=== PATIENT | female | born 1985 | race African-American/Black ===

== ENCOUNTER 2017-10-03 11:14 | Emergency (ER) | payer OTHER ==
[2017-10-03] MEDS ORDERED: METOCLOPRAMIDE HCL 10 MG TABLET PO ONE (12:01)
--- NOTE | 2017-10-03 12:07 | ER Document Report ---
ED General - General Chief Complaint: Vaginal Bleeding Stated Complaint: NAUSEA Time Seen by Provider: 10/03/17 11:47 Mode of Arrival: Ambulatory Information source: Patient Notes: 32-year-old female history of adenomyosis presents with complaints of vaginal bleeding. Patient denies any fevers or chills pain patient notes that she has been bleeding for the past 3 months intermittently, she states [place], she states that they are willing to perform it that she plans on following up with them. She does also note a mild headache, she did drive herself here, she admits to nausea pt does not want control, has had a tubal ligation TRAVEL OUTSIDE OF THE [place] IN LAST 30 DAYS: No - HPI Onset: Other - 3 month duration Onset/Duration: Sudden Quality of pain: No pain Severity: Mild Pain Level: Denies Associated symptoms: Headache, Nausea Exacerbated by: Denies Relieved by: Denies Similar symptoms previously: Yes Recently seen / treated by doctor: Yes - Related Data Allergies/Adverse Reactions: No Known Allergies Allergy (Verified 10/03/17 11:16) Past Medical History - Social History Smoking Status: Never Smoker Cigarette use (# per day): No Chew tobacco use (# tins/day): No Smoking Education Provided: No Frequency of alcohol use: None Drug Abuse: None Family History: Reviewed & Not Pertinent Patient has suicidal ideation: No Patient has homicidal ideation: No Renal/ Medical History: Denies: Hx Peritoneal Dialysis Past Surgical History: Reports: Hx Section, Hx Kidney (Renal Surgery) - donated left kidney, Hx Urinary Tract Surgery - Elective nephrectomy - Immunizations Hx Diphtheria, Pertussis, Tetanus Vaccination: Yes Review of Systems - Review of Systems Notes: REVIEW OF SYSTEMS: CONSTITUTIONAL : Denies fever, chills, or sweats. Denies recent illness. EENT: Denies eye, ear, throat, or mouth pain or symptoms. Denies nasal or sinus congestion or discharge. Denies throat, tongue, or mouth swelling or difficulty swallowing. CARDIOVASCULAR: Denies chest pain. Denies palpitations or racing or irregular heart beat. Denies ankle edema. RESPIRATORY: Denies cough, cold, or chest congestion. Denies shortness of breath, difficulty breathing, or wheezing. GASTROINTESTINAL: Denies abdominal pain or distention. Denies nausea, vomiting , or diarrhea. Denies blood in vomitus, stools, or per rectum. Denies black, tarry stools. Denies constipation. GENITOURINARY: Denies difficulty urinating, painful urination, burning, frequency, blood in urine, or discharge. FEMALE GENITOURINARY: admits to vaginal bleeding MUSCULOSKELETAL: Denies back or neck pain or stiffness. Denies joint pain or swelling. SKIN: Denies rash, lesions or sores. HEMATOLOGIC : Denies easy bruising or bleeding. LYMPHATIC: Denies swollen, enlarged glands. NEUROLOGICAL: Denies confusion or altered mental status. Denies passing out or loss of consciousness. Denies dizziness or lightheadedness. Denies headache. Denies weakness or paralysis or loss of use of either side. Denies problems with gait or speech. Denies sensory loss, numbness, or tingling. Denies seizures. PSYCHIATRIC: Denies anxiety or stress. Denies depression, suicidal ideation, or homicidal ideation. ALL OTHER SYSTEMS REVIEWED AND NEGATIVE. PHYSICAL EXAMINATION: GENERAL: Well-appearing, well-nourished and in no acute distress. HEAD: Atraumatic, normocephalic. EYES: Pupils equal round and reactive to light, extraocular movements intact, conjunctiva are normal. ENT: Nares patent, oropharynx clear without exudates. Moist mucous membranes. NECK: Normal range of motion, supple without lymphadenopathy LUNGS: Breath sounds clear to auscultation bilaterally and equal. No wheezes rales or rhonchi. HEART: Regular rate and rhythm without murmurs ABDOMEN: Soft, nontender, nondistended abdomen. No guarding, no rebound. No masses appreciated. Female : deferred Musculoskeletal: Normal range of motion, no pitting or edema. No cyanosis. NEUROLOGICAL: Cranial nerves grossly intact. Normal speech, normal gait. Normal sensory, motor exams PSYCH: Normal mood, normal affect. SKIN: Warm, Dry, normal turgor, no rashes or lesions noted. Dictation was performed using [employer] voice recognition software Physical Exam - Vital signs Vitals: Temp Pulse Resp BP Pulse Ox 99.2 F 91 16 131/74 H 100 10/03/17 11:18 10/03/17 11:18 10/03/17 11:18 10/03/17 11:18 10/03/17 11:18 Course - Re-evaluation Re-evalutation: 10/03/17 12:07 pt will have blood work ot rule out anemia and other life threatening concerns. 10/03/17 12:43 Patient's blood work does note anemia, transfusion orders have been placed, I did speak with Dr. Lopez who will admit if patient requests, to stop the heavy bleeding 10/03/17 12:54 pt offered admission , she wishes to receives transfusion and be discharged, i spoke with Dr Fitzgerald again, will give provera 20mg tid for 3 days and then 20mg daily until seen by obgyn. - Vital Signs Vital signs: Temp Pulse Resp BP Pulse Ox 99.2 F 91 16 131/74 H 100 10/03/17 11:18 10/03/17 11:18 10/03/17 11:18 10/03/17 11:18 10/03/17 11:18 - Laboratory Result Diagrams: 10/03/17 12:12 10/03/17 12:12 Laboratory results interpreted by me: 10/03/17 10/03/17 10/03/17 12:12 12:12 12:12 Hgb 7.4 L Hct 23.7 L MCV 63 L MCH 19.7 L MCHC 31.3 L RDW 20.2 H Est GFR (Non-Af Amer) 51 L Urine Protein 100 H Urine Blood LARGE H Critical Care Note - Critical Care Note Total time excluding time spent on procedures (mins): 34 Comments: 34 minutes of critical care time spent in direct contact evaluating and reevaluating the patient, treating symptoms, reviewing labs and studies and speaking with family and consultants excluding any procedures Discharge - Discharge Clinical Impression: Blood loss anemia, Adenomyosis Migraine Qualifiers: Migraine type: unspecified Status migrainosus presence: without status migrainosus Intractability: not intractable Qualified Code(s): G43.909 - Migraine, unspecified, not intractable, without status migrainosus Condition: Stable
[2017-10-03 12:25] LABS: ABSOLUTE EOSINOPHILS # (AUTO) 0.1 10^3/uL (0.0-0.6); ABSOLUTE LYMPHOCYTES (AUTO) 1.4 10^3/uL (0.5-4.7); ABSOLUTE MONOCYTES (AUTO) 0.5 10^3/uL (0.1-1.4); ABSOLUTE NEUT (AUTO) 3.2 10^3/uL (1.7-8.2); BASOPHILS % (AUTO) 0.7 % (0-2); HEMATOCRIT 23.7 % (36.0-47.0); LYMPHOCYTES % (AUTO) 27.3 % (13-45); MEAN CORPUSCULAR HEMOGLOBIN 19.7 pg (27.0-33.4); MEAN CORPUSCULAR HGB CONC 31.3 g/dL (32.0-36.0); MONOCYTES % (AUTO) 9.9 % (3-13); PLATELET COUNT 227 10^3/uL (150-450); RED BLOOD COUNT 3.75 10^6/uL (3.72-5.28); RED CELL DISTRIBUTION WIDTH 20.2 % (11.5-14.0); SEGMENTED NEUTROPHILS % (AUTO) 60.1 % (42-78); TOTAL CELLS COUNTED % (AUTO) 100 %; WHITE BLOOD COUNT 5.3 10^3/uL (4.0-10.5)
[2017-10-03 12:26] LABS: MEAN CORPUSCULAR VOLUME 63 fl (80-97)
[2017-10-03 12:32] LABS: HEMOGLOBIN 7.4 g/dL (12.0-15.5)
[2017-10-03] MEDS ORDERED: NORMAL SALINE 250 ML IV PRN ×2 (12:32)
[2017-10-03 12:38] LABS: APPEARANCE,URINE SLIGHTLY-CLOUDY; BILIRUBIN,URINE NEGATIVE (NEGATIVE); COLOR,URINE RED; GLUCOSE, URINE NEGATIVE (NEGATIVE); KETONES,URINE NEGATIVE (NEGATIVE); LEUKOCYTE ESTERASE,URINE NEGATIVE (NEGATIVE); NITRITE,URINE NEGATIVE (NEGATIVE); PROTEIN,URINE 100 mg/dL (NEGATIVE); URINE SPECIFIC GRAVITY 1.013; UROBILINOGEN,URINE NEGATIVE mg/dL (<2.0)
[2017-10-03 12:41] LABS: ALANINE AMINOTRANSFERASE 22 U/L (9-52); ALBUMIN 3.9 g/dL (3.5-5.0); ALKALINE PHOSPHATASE 50 U/L (38-126); ANION GAP 12 (5-19); ASPARTATE AMINO TRANSFERASE 21 U/L (14-36); BILIRUBIN,DIRECT 0.2 mg/dL (0.0-0.4); BILIRUBIN,TOTAL 0.2 mg/dL (0.2-1.3); BLOOD UREA NITROGEN 12 mg/dL (7-20); CALCIUM 8.8 mg/dL (8.4-10.2); CARBON DIOXIDE 25 mmol/L (22-30); CHLORIDE 102 mmol/L (98-107); GLUCOSE 89 mg/dL (75-110); POTASSIUM 3.8 mmol/L (3.6-5.0); SODIUM 139.1 mmol/L (137-145); TOTAL PROTEIN 6.9 g/dL (6.3-8.2)
[2017-10-03] MEDS ORDERED: MEDROXYPROGESTERONE ACET 10 MG TABLET PO ONE (12:54)
[2017-10-03 13:01] LABS: ANISOCYTOSIS 2+; HYPOCHROMASIA 3+; OVALOCYTES 1+; PLATELET COMMENT ADEQUATE; POIKILOCYTOSIS 1+
[2017-10-03] MEDS ORDERED: PROCHLORPERAZINE EDISYLATE INJ 10 MG/2 ML VIAL IV ONE (13:02)
[2017-10-03] MEDS ORDERED: DIPHENHYDRAMINE HCL 50 MG/ML VIAL IV ONE (13:02)
[2017-10-03 16:48] VITALS: BP 110/65
[2017-10-04 10:14] LABS: PATH REVIEW PATHOLOGIST REVIEWED
== END 2017-10-03 16:54 | disposition home or self-care (01) ==
LOC: ER 11:14
DX: G43.909 Migraine, unspecified, not intractable, without status migrainosus (principal); N80.0 Endometriosis of uterus; D50.0 Iron deficiency anemia secondary to blood loss (chronic); R11.0 Nausea
CPT/HCPCS: 99285; 96374; 96375; 86900; 86901; 36415; 36430; 86850; 85025; 80053; 81001; 86920; P9016; J1200; J3490; J0780

== ENCOUNTER 2017-11-07 12:32 | Emergency (ER) | payer OTHER ==
[2017-11-07] MEDS ORDERED: ONDANSETRON 4 MG TAB.RAPDIS PO ONE (15:02)
--- NOTE | 2017-11-07 15:08 | ER Document Report ---
ED GI/ - General Chief Complaint: Abdominal Cramping Stated Complaint: ABDOMINAL PAIN Time Seen by Provider: 11/07/17 14:41 Mode of Arrival: Ambulatory Information source: Patient Notes: Patient presents complaining of heavy vaginal bleeding since June of last year. Patient states that she was initially followed by the [facility] department at the [facility] but just recently switched to see Dr. Marmolejo and saw him yesterday. Patient states that she was on oral contraceptives until yesterday and then was switched to estrogen. Patient states she was given tramadol but that this is not helping her pain. Patient complains of nausea and vomiting 5 episodes today. Patient states she has had pelvic cramping for the past 2 weeks. Patient denies any urinary symptoms. Patient states that last time she was here she required a transfusion. Patient is wanting her vaginal bleeding stopped today and would like to be admitted to have this resolved. TRAVEL OUTSIDE OF THE [place] IN LAST 30 DAYS: No - HPI Patient complains to provider of: Vaginal bleeding, Vomiting. No: , Vaginal discharge Onset: Other - Vaginal bleeding times several months Timing/Duration: Persistent Quality of pain: Cramping Pain Level: 3 Location: Pelvis Vaginal bleeding (Compared to normal period): Similar Associated symptoms: Nausea, Vomiting. denies: Diarrhea, Dizzy, Dysuria, Loss of appetite, Urinary hesitancy, Urinary frequency, Urinary retention Exacerbated by: Denies Relieved by: Denies Similar symptoms previously: Yes Recently seen / treated by doctor: Yes - Related Data Allergies/Adverse Reactions: No Known Allergies Allergy (Verified 11/07/17 12:35) Past Medical History - General Information source: Patient - Social History Smoking Status: Never Smoker Chew tobacco use (# tins/day): No Frequency of alcohol use: None Drug Abuse: None Occupation: Nurse Family History: Reviewed & Not Pertinent Patient has suicidal ideation: No Patient has homicidal ideation: No - Medical History Medical History: Negative Renal/ Medical History: Denies: Hx Peritoneal Dialysis Past Surgical History: Reports: Hx Section, Hx Kidney (Renal Surgery) - donated left kidney, Hx Urinary Tract Surgery - Elective nephrectomy - Immunizations Hx Diphtheria, Pertussis, Tetanus Vaccination: Yes Review of Systems - Review of Systems Constitutional: No symptoms reported. denies: Fever, Recent illness EENT: No symptoms reported Cardiovascular: No symptoms reported. denies: Chest pain, Palpitations, Syncope , Dizziness Respiratory: No symptoms reported Gastrointestinal: Abdominal pain, Nausea, Vomiting. denies: Diarrhea Genitourinary: No symptoms reported. denies: Dysuria, Flank pain Female Genitourinary: Heavy/abnormal periods, Vaginal bleeding. denies: Musculoskeletal: No symptoms reported. denies: Back pain Skin: No symptoms reported Hematologic/Lymphatic: No symptoms reported Neurological/Psychological: No symptoms reported Physical Exam - Vital signs Vitals: Temp Pulse Resp BP Pulse Ox 98.8 F 83 20 129/61 H 100 11/07/17 12:42 11/07/17 12:42 11/07/17 12:42 11/07/17 12:42 11/07/17 12:42 - General General appearance: Appears well, Alert In distress: None - HEENT Head: Normocephalic, Atraumatic Eyes: Normal Mouth/Lips: Normal Mucous membranes: Normal Neck: Normal, Supple - Respiratory Respiratory status: No respiratory distress Chest status: Nontender Breath sounds: Normal. No: Rales, Rhonchi, Stridor, Wheezing Chest palpation: Normal - Cardiovascular Rhythm: Regular Heart sounds: S1 appreciated, S2 appreciated Murmur: No - Abdominal Inspection: Normal Distension: No distension Bowel sounds: Normal Tenderness: Tender - lower pelvic. No: McBurney's point, Guarding Organomegaly: No organomegaly - Back Back: Normal, Nontender. No: CVA tenderness - Extremities General upper extremity: Normal inspection, Normal ROM General lower extremity: Normal inspection, Normal ROM - Neurological Neuro grossly intact: Yes Cognition: Normal Andra Coma Scale Eye Opening: Spontaneous Andra Coma Scale Verbal: Oriented Andra Coma Scale Motor: Obeys Commands Andra Coma Scale Total: 15 - Psychological Associated symptoms: Normal affect, Normal mood - Skin Skin Temperature: Warm Skin Moisture: Dry Skin Color: Normal Course - Re-evaluation Re-evalutation: 11/07/17 16:[address] Marmolejo, pt's pcp who she saw yesterday. Reviewed pt's labs, concerns, and physical exam. States pt is not at a transfusable level. States pt can continue estrogen and can follow up in the office tomorrow morning for a recheck. 11/07/17 16:20 Attempted to discuss plan of care with patient, patient obviously irritated and is not happy with this plan of care. Patient states she wants to be admitted and have something definitively done to stop her vaginal bleeding right now. Patient now states that she has been taking Zofran at home without improvement of the nausea symptoms. Patient had previously not mentioned taking this medication. Offered to consult with [facility] who is on-call. Consulted with Dr. Lopez who does agree to come and evaluate patient in the emergency department. This provider was under the assumption that Dr. Marmolejo does not perform any procedures or admissions, Dr. Lopez states that she was under the assumption that Dr. Marmolejo did still do procedures and that he does still admit patients, but is agreeable to be consulted. 11/07/17 17:[address] Lopez to bedside. Dr. Lopez after consulting with Dr. Marmolejo agreed to discuss and reinforce Dr. Torres plan. Patient does not have unstable vital signs and is not any transfuse with a level regarding her lab work today and is stable for outpatient management and follow-up with her primary doctor who does agree to see her tomorrow morning. Patient repeatedly rolling eyes and telling Dr. Lopez that no one is listening to patient's concerns and that she wants to have her bleeding stopped now and wants to be admitted to the hospital now. Again Dr. Lopez discussed each of of patient's concerns addressing them individually. Patient is agreeable to discharge and states that she will follow-up with her doctor as an outpatient. Dr. Lopez did voice concerns that patient does have behaviors concerning for doctor shopping in that she was initially a patient of the [facility] last month and then just recently started to be evaluated by Dr. Marmolejo, as Dr Lopez had initially been consulted on this patient back in September last month when she presented with vaginal bleeding and anemia. Patient has not had any vomiting during her ER stay. 11/07/17 17:57 - Vital Signs Vital signs: Temp Pulse Resp BP Pulse Ox 98.9 F 78 16 127/89 H 99 11/07/17 18:15 11/07/17 18:15 11/07/17 18:15 11/07/17 18:15 11/07/17 18:15 - Laboratory Result Diagrams: 11/07/17 14:50 11/07/17 14:50 Laboratory results interpreted by me: 11/07/17 11/07/17 11/07/17 14:50 14:50 14:50 WBC 10.8 H Hgb 8.1 L Hct 26.7 L MCV 69 L MCH 20.9 L MCHC 30.2 L RDW 25.9 H Seg Neutrophils % 90.1 H Lymphocytes % 6.1 L Absolute Neutrophils 9.7 H Est GFR (Non-Af Amer) 52 L Urine Blood LARGE H Labs- Entire Visit 11/07/17 11/07/17 11/07/17 14:50 14:50 14:50 WBC 10.8 H RBC 3.86 Hgb 8.1 L Hct 26.7 L MCV 69 L MCH 20.9 L MCHC 30.2 L RDW 25.9 H Plt Count 320 Seg Neutrophils % 90.1 H Lymphocytes % 6.1 L Monocytes % 3.3 Eosinophils % 0.1 Basophils % 0.4 Absolute Neutrophils 9.7 H Absolute Lymphocytes 0.7 Absolute Monocytes 0.4 Absolute Eosinophils 0.0 Absolute Basophils 0.0 Platelet Comment ADEQUATE Polychromasia SLIGHT Hypochromasia 1+ Poikilocytosis 1+ Anisocytosis 3+ Microcytosis 2+ Target Cells SLIGHT Ovalocytes 1+ Sodium Potassium Chloride Carbon Dioxide Anion Gap BUN Creatinine Est GFR ( Amer) Est GFR (Non-Af Amer) Glucose Calcium Total Bilirubin Direct Bilirubin Neonat Total Bilirubin Neonat Direct Bilirubin Neonat Indirect Bili AST ALT Alkaline Phosphatase Total Protein Albumin Serum HCG, Qual NEGATIVE Urine Color STRAW Urine Appearance SLIGHTLY-CLOUDY Urine pH 7.0 Ur Specific [place] 1.021 Urine Protein NEGATIVE Urine Glucose (UA) NEGATIVE Urine Ketones NEGATIVE Urine Blood LARGE H Urine Nitrite NEGATIVE Urine Bilirubin NEGATIVE Urine Urobilinogen NEGATIVE Ur Leukocyte Esterase NEGATIVE Urine WBC (Auto) 3 Urine RBC (Auto) 124 Squamous Epi Cells Auto 1 Urine Mucus (Auto) RARE Urine Ascorbic Acid NEGATIVE 11/07/17 14:50 WBC RBC Hgb Hct MCV MCH MCHC RDW Plt Count Seg Neutrophils % Lymphocytes % Monocytes % Eosinophils % Basophils % Absolute Neutrophils Absolute Lymphocytes Absolute Monocytes Absolute Eosinophils Absolute Basophils Platelet Comment Polychromasia Hypochromasia Poikilocytosis Anisocytosis Microcytosis Target Cells Ovalocytes Sodium 141.6 Potassium 5.0 Chloride 105 Carbon Dioxide 24 Anion Gap 13 BUN 12 Creatinine 1.21 Est GFR ( Amer) > 60 Est GFR (Non-Af Amer) 52 L Glucose 92 Calcium 10.1 Total Bilirubin 0.3 Direct Bilirubin 0.3 Neonat Total Bilirubin Not Reportable Neonat Direct Bilirubin Not Reportable Neonat Indirect Bili Not Reportable AST 27 ALT 31 Alkaline Phosphatase 47 Total Protein 7.8 Albumin 4.6 Serum HCG, Qual Urine Color Urine Appearance Urine pH Ur Specific [place] Urine Protein Urine Glucose (UA) Urine Ketones Urine Blood Urine Nitrite Urine Bilirubin Urine Urobilinogen Ur Leukocyte Esterase Urine WBC (Auto) Urine RBC (Auto) Squamous Epi Cells Auto Urine Mucus (Auto) Urine Ascorbic Acid Reviewed laboratory tests from patient's previous ER visit Discharge - Discharge Clinical Impression: Vagina bleeding Anemia Qualifiers: Anemia type: iron deficiency Iron deficiency anemia type: chronic blood loss Qualified Code(s): D50.0 - Iron deficiency anemia secondary to blood loss ( chronic) Condition: Stable Disposition: HOME, SELF-CARE Instructions: Antinausea Medication ([facility]), Vaginal Bleeding ([facility]) Additional Instructions: Return immediately for any new or worsening symptoms Followup with Dr. Marmolejo in his office tomorrow. Call in the morning to get an appointment time. Prescriptions: Promethazine HCl [Phenergan 25 mg Tablet] 25 mg PO Q6H PRN #12 tablet PRN Reason: Forms: Return to Work Referrals: KAREN MARMOLEJO MD [Primary Care Provider] - Follow up tomorrow
[2017-11-07 15:23] LABS: ABSOLUTE LYMPHOCYTES (AUTO) 0.7 10^3/uL (0.5-4.7); ABSOLUTE MONOCYTES (AUTO) 0.4 10^3/uL (0.1-1.4); ABSOLUTE NEUT (AUTO) 9.7 10^3/uL (1.7-8.2); BASOPHILS % (AUTO) 0.4 % (0-2); EOSINOPHILS % (AUTO) 0.1 % (0-6); HEMATOCRIT 26.7 % (36.0-47.0); HEMOGLOBIN 8.1 g/dL (12.0-15.5); LYMPHOCYTES % (AUTO) 6.1 % (13-45); MEAN CORPUSCULAR HEMOGLOBIN 20.9 pg (27.0-33.4); MEAN CORPUSCULAR HGB CONC 30.2 g/dL (32.0-36.0); MEAN CORPUSCULAR VOLUME 69 fl (80-97); MONOCYTES % (AUTO) 3.3 % (3-13); PLATELET COUNT 320 10^3/uL (150-450); RED BLOOD COUNT 3.86 10^6/uL (3.72-5.28); RED CELL DISTRIBUTION WIDTH 25.9 % (11.5-14.0); SEGMENTED NEUTROPHILS % (AUTO) 90.1 % (42-78); TOTAL CELLS COUNTED % (AUTO) 100 %; WHITE BLOOD COUNT 10.8 10^3/uL (4.0-10.5)
[2017-11-07 15:26] LABS: APPEARANCE,URINE SLIGHTLY-CLOUDY; COLOR,URINE STRAW; GLUCOSE, URINE NEGATIVE (NEGATIVE)
[2017-11-07 15:27] LABS: BILIRUBIN,URINE NEGATIVE (NEGATIVE); KETONES,URINE NEGATIVE (NEGATIVE); LEUKOCYTE ESTERASE,URINE NEGATIVE (NEGATIVE); NITRITE,URINE NEGATIVE (NEGATIVE); PROTEIN,URINE NEGATIVE (NEGATIVE); URINE SPECIFIC GRAVITY 1.021; UROBILINOGEN,URINE NEGATIVE mg/dL (<2.0)
[2017-11-07 15:32] LABS: ALANINE AMINOTRANSFERASE 31 U/L (9-52); ALBUMIN 4.6 g/dL (3.5-5.0); ALKALINE PHOSPHATASE 47 U/L (38-126); ANION GAP 13 (5-19); ASPARTATE AMINO TRANSFERASE 27 U/L (14-36); BILIRUBIN,DIRECT 0.3 mg/dL (0.0-0.4); BILIRUBIN,TOTAL 0.3 mg/dL (0.2-1.3); BLOOD UREA NITROGEN 12 mg/dL (7-20); CALCIUM 10.1 mg/dL (8.4-10.2); CARBON DIOXIDE 24 mmol/L (22-30); CHLORIDE 105 mmol/L (98-107); GLUCOSE 92 mg/dL (75-110); SODIUM 141.6 mmol/L (137-145); TOTAL PROTEIN 7.8 g/dL (6.3-8.2)
[2017-11-07 15:45] LABS: ANISOCYTOSIS 3+; HYPOCHROMASIA 1+; POLYCHROMASIA SLIGHT
[2017-11-07 15:46] LABS: OVALOCYTES 1+; PLATELET COMMENT ADEQUATE; POIKILOCYTOSIS 1+; TARGET CELLS SLIGHT
[2017-11-07 18:16] VITALS: BP 127/89
--- NOTE | 2017-11-07 20:00 | PDOC CONSULTATION ---
Consultation Consult Date: 11/07/17 Attending physician:: KAREN MARMOLEJO Consult reason:: Vaginal bleeding, non History of Present Illness Admission Date/PCP: KAREN MARMOLEJO MD Patient complains of: vaginal bleeding History of Present Illness: MINA WIN is a 32 year old female presents for evaluation in the ER c/o vaginal bleeding. She was seen in the ER in Sep of this month and due to low Hb /HCt and amount of bleeding pt was offered transfusion and admission. She refused admission and accepted only transfusion with outpatient provera. At that time she reported she was seeing [facility] and was planning a hysterectomy. Apparently, she has since begun care with Dr. Marmolejo who saw her in the office yesterday and started her on Estrogen for interim management of her vaginal bleeding with plans to possibly do an ablation in the near future. Dr. Marmolejo did a full work up in the office yesterday with US and labs and exam. Apparently, pt was insisting on having procedure done yesterday and is insisting that bleeding stop immediately. She is here today in the ER due to continued vaginal bleeding and nausea with medication. Nurse practitioner that was taking care of the patient in the ER spoke with Dr Marmolejo and reviewed patient and VS/labs etc and Dr. Marmolejo recommended that pt be discharged with f/u in am in his office as she is stable and does not meet criteria for need for admission. Pt is not having significant vaginal bleeding at this time. ER provider call me as the manager acquisition provider for assistance. Past Medical History LMP: Jun 2017 Gynecological Infection: No Obstetrical History: none Medical History: None Cardiac Medical History: Denies: DVT, Myocardial Infarction, Pulmonary Embolism Pulmonary Medical History: Reports: None Neurological Medical History: Reports: None Endocrine Medical History: Reports: None Renal/ Medical History: Reports: None Malignancy Medical History: Reports: None GI Medical History: Reports: None Musculoskeltal Medical History: Reports: None Skin Medical History: Reports: None Psychiatric Medical History: Reports: None Traumatic Medical History: Reports: None Infectious Medical History: Reports: None Social History Information Source: Patient Smoking Status: Never Smoker Frequency of Alcohol Use: None Hx Recreational Drug Use: No Drugs: None Hx Prescription Drug Abuse: No - Advance Directive Resuscitation Status: Full Code Family History Family History: Reviewed & Not Pertinent Parental Family History Reviewed: No Children Family History Reviewed: NA Sibling(s) Family History Reviewed.: NA Medication/Allergy Home Medications: Estradiol [Estradiol] 2 mg PO TID 11/07/17 Promethazine HCl [Phenergan 25 mg Tablet] 25 mg PO Q6H PRN #12 tablet 11/07/17 Tramadol HCl [Tramadol HCl] 50 mg PO Q6H 11/07/17 Allergies/Adverse Reactions: No Known Allergies Allergy (Verified 11/07/17 12:35) Review of Systems Constitutional: ABSENT: chills, fever(s), headache(s), weight gain, weight loss Cardiovascular: ABSENT: chest pain, dyspnea on exertion, edema, orthropnea, palpitations Respiratory: ABSENT: cough, hemoptysis Gastrointestinal: PRESENT: as per HPI, nausea. ABSENT: abdominal pain, bloating , melena, vomiting Genitourinary: ABSENT: dysuria, hematuria Musculoskeletal: ABSENT: joint swelling Integumentary: ABSENT: rash, wounds Neurological: ABSENT: abnormal gait, abnormal speech, confusion, dizziness, focal weakness, syncope Psychiatric: ABSENT: anxiety, depression, homidical ideation, suicidal ideation Endocrine: ABSENT: cold intolerance, heat intolerance, polydipsia, polyuria Hematologic/Lymphatic: ABSENT: easy bleeding, easy bruising Physical Exam - Physical Exam Vital Signs: Temp Pulse Resp BP Pulse Ox 98.8 F 83 20 129/61 H 100 11/07/17 12:42 11/07/17 12:42 11/07/17 12:42 11/07/17 12:42 11/07/17 12:42 Intake & Output 11/06/17 11/07/17 11/08/17 06:59 06:59 06:59 Weight 85.7 kg Heart/lung/ Physical exam done by Nurse Practioner in the ER - appreciate her assistance with patient. General appearance: PRESENT: no acute distress, well-developed, well-nourished Head exam: PRESENT: atraumatic, normocephalic Eye exam: PRESENT: conjunctiva pink Mouth exam: PRESENT: moist Musculoskeletal exam: PRESENT: ambulatory Neurological exam: PRESENT: alert, awake, oriented to person, oriented to place , oriented to time, oriented to situation, CN II-XII grossly intact. ABSENT: motor sensory deficit Psychiatric exam: PRESENT: agitated, anxious Skin exam: PRESENT: dry, intact, warm. ABSENT: cyanosis, rash Result Laboratory Results: 11/07/17 14:50 11/07/17 14:50 11/07/17 11/07/17 11/07/17 14:50 14:50 14:50 WBC 10.8 H RBC 3.86 Hgb 8.1 L Hct 26.7 L MCV 69 L MCH 20.9 L MCHC 30.2 L RDW 25.9 H Plt Count 320 Seg Neutrophils % 90.1 H Lymphocytes % 6.1 L Monocytes % 3.3 Eosinophils % 0.1 Basophils % 0.4 Absolute Neutrophils 9.7 H Absolute Lymphocytes 0.7 Absolute Monocytes 0.4 Absolute Eosinophils 0.0 Absolute Basophils 0.0 Sodium Potassium Chloride Carbon Dioxide Anion Gap BUN Creatinine Est GFR ( Amer) Est GFR (Non-Af Amer) Glucose Calcium Total Bilirubin AST ALT Alkaline Phosphatase Total Protein Albumin Serum HCG, Qual NEGATIVE Urine Color STRAW Urine Appearance SLIGHTLY-CLOUDY Urine pH 7.0 Ur Specific Cavalier 1.021 Urine Protein NEGATIVE Urine Glucose (UA) NEGATIVE Urine Ketones NEGATIVE Urine Blood LARGE H Urine Nitrite NEGATIVE Ur Leukocyte Esterase NEGATIVE Urine WBC (Auto) 3 Urine RBC (Auto) 124 11/07/17 14:50 WBC RBC Hgb Hct MCV MCH MCHC RDW Plt Count Seg Neutrophils % Lymphocytes % Monocytes % Eosinophils % Basophils % Absolute Neutrophils Absolute Lymphocytes Absolute Monocytes Absolute Eosinophils Absolute Basophils Sodium 141.6 Potassium 5.0 Chloride 105 Carbon Dioxide 24 Anion Gap 13 BUN 12 Creatinine 1.21 Est GFR ( Amer) > 60 Est GFR (Non-Af Amer) 52 L Glucose 92 Calcium 10.1 Total Bilirubin 0.3 AST 27 ALT 31 Alkaline Phosphatase 47 Total Protein 7.8 Albumin 4.6 Serum HCG, Qual Urine Color Urine Appearance Urine pH Ur Specific Cavalier Urine Protein Urine Glucose (UA) Urine Ketones Urine Blood Urine Nitrite Ur Leukocyte Esterase Urine WBC (Auto) Urine RBC (Auto) Assessment & Plan - Diagnosis (1) Vagina bleeding Is this a current diagnosis for this admission?: Yes Plan: Called and spoke with Nurse practitioner in Dr. Torres office (Siva Marmolejo) and also spoke with Dr. Marmolejo. He was well aware of the patient as ER provider had already contacted him and reviewed her VS and labs and exam with him. He recommended that she continue medications and f/u in the office with him in the am. I expressed that I agree with him that she did not need admission but that pt was declining to leave the ER and that she was insisting on admission and procedure to cause cessation of her bleeding. I offered to speak with the patient on his behalf to support his plan of care and again offer her f/u in the office with him in the am. I also spoke with the Nursing Credit Administration Manager and the credit risk manager to make sure that it was okay for me to do so and document a brief consult on behalf of Dr. Marmolejo. I am happy to do this for Dr. Marmolejo. I reviewed the case with the credit risk manager Dr. Murdock who agreed that patient was very stable and did not need emergent transfusion or admission to the hospital for an emergent surgery. I appreciate his help and assistance with this patient. The fire department battalion chief gave me the go ahead to document encounter and what we had offered. Upon review of the case with the ER provider regarding the patients exam - the vaginal bleeding was not heavy and even per patient own admission is not significantly changed since evaluation by Dr. Marmolejo yesterday. Reviewed patient concerns with her and reviewed with her that she would like medications to stop her bleeding immediately. I reviewed with her that no medication will stop her bleeding immediately that medication is usually a temporizing measure to bridge to other interventions such as the one that Dr. Marmolejo reviewed with her already - ablation. Reviewed again with patient plan of care as discussed with Dr. Marmolejo and encouraged the patient to f/u in the office with him in the am. Reviewed with patient that her blood count was improved since last presentation and that her bleeding is less than before and although still present there is no need for admission or emergency surgery at this time. REviewed with patient each of her concerns including nausea and attempted to address these (most of what was offered patient declined - only agreed to po antiemetics) patient did not seem to be happy with anything that was offered short of immediate cessation of bleeding with surgery now and admission to the hospital. Reviewed again with patient that she was very stable and did not meet criteria for need for admission nor the need for surgery today. Pt at this time requested to have her IV removed and desires to leave stating - "no one was listening to her". I apologized to her that she felt that way and reinforced that we have tried to address her concerns, including nausea and that she does not need inpatient treatment or urgent surgery at this time. If her bleeding worsens and symptoms of anemia worsen then patient should represent but that she should f/u in the office with Dr. Marmolejo. 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 Pt s/p transfusion at end of the month of Sep. and also reports that she has had an iron infusion. Hb/ Hct anemic but not at transfusion level since VS stable with no e/o orthostasis and actually appears well. Would recommend Iron BID to TID which Dr. Marmolejo has already recommended. Pt also has also had recommendations from Dr. Marmolejo for f/ u in office in am with poss ablation in the future. (3) Nausea Is this a current diagnosis for this admission?: Yes Plan: Pt reports nausea from the Estrogen pills. Offered Zofran - she declined. Offered IV antiemetics - pt refused. Offered po antiemetics - ER Nurse practitioner provided to patient but patient did not seem happy with this plan as well. Offered if she is unhappy with nausea from estrogen and declining antiemetics that we could try the high dose progesterone as she had been given in Sep - she declined this as well. - Time Time Spent: 30 to 50 Minutes Critical Time spent with patient: Less than 15 minutes Medications reviewed and adjusted accordingly: Yes Anticipated discharge: Home Within: within 24 hours - Inpatient Certification Based on my medical assessment, after consideration of the patient's comorbidities, presenting symptoms, or acuity I expect that the services needed warrant INPATIENT care.: No I certify that my determination is in accordance with my understanding of Medicare's requirements for reasonable and necessary INPATIENT services [42 CFR 412.3e].: No - Plan Summary Plan Summary: As recommended by Dr. Marmolejo (which I agree with) patient to be discharged and f/ u in the office with Dr. Marmolejo.
== END 2017-11-07 18:16 | disposition home or self-care (01) ==
LOC: ER 12:32
DX: N93.9 Abnormal uterine and vaginal bleeding, unspecified (principal); D50.0 Iron deficiency anemia secondary to blood loss (chronic); R11.2 Nausea with vomiting, unspecified; R10.2 Pelvic and perineal pain; Z90.5 Acquired absence of kidney
CPT/HCPCS: 99284; 36415; 84703; 85025; 80053; 81001; S0119

== ENCOUNTER 2017-11-08 14:05 | Observation (INO) | payer OTHER ==
[2017-11-08] MEDS ORDERED: CEFAZOLIN 1 GM/D5W RTU 1 GM/50 ML RTUPB IV PRN (14:48)
[2017-11-08 15:44] LABS: ABSOLUTE EOSINOPHILS # (AUTO) 0.1 10^3/uL (0.0-0.6); ABSOLUTE LYMPHOCYTES (AUTO) 0.7 10^3/uL (0.5-4.7); ABSOLUTE MONOCYTES (AUTO) 0.5 10^3/uL (0.1-1.4); ABSOLUTE NEUT (AUTO) 7.5 10^3/uL (1.7-8.2); BASOPHILS % (AUTO) 0.4 % (0-2); EOSINOPHILS % (AUTO) 1.4 % (0-6); HEMATOCRIT 25.8 % (36.0-47.0); LYMPHOCYTES % (AUTO) 8.3 % (13-45); MEAN CORPUSCULAR HGB CONC 30.7 g/dL (32.0-36.0); MEAN CORPUSCULAR VOLUME 69 fl (80-97); MONOCYTES % (AUTO) 5.1 % (3-13); RED BLOOD COUNT 3.76 10^6/uL (3.72-5.28); RED CELL DISTRIBUTION WIDTH 25.6 % (11.5-14.0); SEGMENTED NEUTROPHILS % (AUTO) 84.8 % (42-78); TOTAL CELLS COUNTED % (AUTO) 100 %; WHITE BLOOD COUNT 8.8 10^3/uL (4.0-10.5)
[2017-11-08 16:00] LABS: ALANINE AMINOTRANSFERASE 31 U/L (9-52); ALBUMIN 4.1 g/dL (3.5-5.0); ALKALINE PHOSPHATASE 51 U/L (38-126); ANION GAP 10 (5-19); ASPARTATE AMINO TRANSFERASE 21 U/L (14-36); BILIRUBIN,TOTAL 0.2 mg/dL (0.2-1.3); BLOOD UREA NITROGEN 12 mg/dL (7-20); CARBON DIOXIDE 28 mmol/L (22-30); CHLORIDE 104 mmol/L (98-107); GLUCOSE 85 mg/dL (75-110); POTASSIUM 4.6 mmol/L (3.6-5.0); SODIUM 141.5 mmol/L (137-145); TOTAL PROTEIN 6.9 g/dL (6.3-8.2)
[2017-11-08 16:12] LABS: ANISOCYTOSIS 3+; HYPOCHROMASIA SLIGHT; PLATELET CLUMPS PRESENT; PLATELET COMMENT ADEQUATE; PLATELET COUNT 331 10^3/uL (150-450)
[2017-11-08 16:15] LABS: HEMOGLOBIN 7.9 g/dL (12.0-15.5)
[2017-11-08] MEDS ORDERED: LIDOCAINE 1% INJ-PF (10 MG/ML) 30 ML SDV ONE (17:20)
[2017-11-08] MEDS ORDERED: ONDANSETRON HCL INJ/PF 4 MG/2 ML SDV IV PRN (17:23)
[2017-11-08] MEDS ORDERED: MEPERIDINE HCL/PF INJ 25 MG/1 ML DISP.SYRIN IV PRN (17:23)
[2017-11-08] MEDS ORDERED: FENTANYL CITRATE INJ/PF 100 MCG/2 ML AMPUL IV PRN ×3 (17:23)
[2017-11-08] MEDS ORDERED: DIPHENHYDRAMINE HCL 50 MG/ML VIAL IV PRN (17:23)
[2017-11-08] MEDS ORDERED: PROMETHAZINE HCL INJ 25 MG/1 ML VIAL IV PRN ×2 (17:23→18:42)
[2017-11-08] MEDS ORDERED: FENTANYL CITRATE INJ/PF 100 MCG/2 ML AMPUL ONE ×2 (17:26→17:27)
[2017-11-08] MEDS ORDERED: ONDANSETRON HCL INJ/PF 4 MG/2 ML SDV ONE (17:27)
[2017-11-08] MEDS ORDERED: DEXAMETHASONE SOD PHOSPHATE INJ 4 MG/1 ML VIAL ONE (17:27)
[2017-11-08] MEDS ORDERED: EPHEDRINE SULFATE INJ 50 MG/1 ML AMPULE ONE (17:27)
[2017-11-08] MEDS ORDERED: MIDAZOLAM 2 MG/2 ML INJ ONE (17:27)
[2017-11-08] MEDS ORDERED: PROPOFOL INJ 200 MG/20 ML VIAL IV ONE (17:27)
[2017-11-08] MEDS ORDERED: OXYCODONE-ACETAMINOPHEN 5-325 MG TABLET PO PRN ×2 (18:40→18:41)
[2017-11-08] MEDS ORDERED: DEXTROSE 5%-LACTATED RINGERS 1,000 ML IV PRN (18:45)
[2017-11-08] MEDS ORDERED: ESTROGENS,CONJUGATED 25 MG VIAL IV ONE (19:00)
--- NOTE | 2017-11-08 19:29 | OPERATIVE REPORT E ---
Operative Report NAME: MINA WIN : 1985 AGE: 32Y DATE OF SURGERY: 11/08/2017 ROOM: 211 PREOPERATIVE DIAGNOSES: 1. DYSFUNCTIONAL UTERINE BLEEDING. 2. MENOMETRORRHAGIA. 3. ANEMIA. POSTOPERATIVE DIAGNOSES: 1. DYSFUNCTIONAL UTERINE BLEEDING. 2. MENOMETRORRHAGIA. 3. ANEMIA. OPERATION: SURGEON: KAREN MARMOLEJO M.D. ANESTHESIA: General. OPERATIVE BLOOD LOSS: 25. INDICATION: This is a 32-year-old multiparous female, who had been having a history over the past couple of months of irregular and heavy bleeding. She presented with ongoing problems with passing clots and bleeding. She had a hemoglobin of 8.1 in the ER yesterday, and she had gotten an iron infusion to help with the anemia. She continued to have a lot of heavy bleeding with clots. It was ultimately decided, after talking to the the hospital, her hemoglobin was 7.9. At the time of surgery, the vagina had some blood clots. The cervix was dilated. There was some blood in the cervical os, clots. The uterus was slightly increased in size, a little bit boggy. Adnexa were negative. We did do a test; it was negative. Her adnexa were okay. PROCEDURE: Patient was brought into the OR, placed on the table in a supine position, inducted under general anesthesia. Following this, she was repositioned in a dorsolithotomy position, prepped and draped in sterile fashion. Timeout was done and the patient had her bladder drained of about 75 mL of clear yellow urine. Pelvic under anesthesia was then done. Having accomplished this and ascertaining the nature of the pelvic exam, a bi-valved speculum was inserted. It was opened up. The cervix was grasped on its anterior lip with a single-toothed tenaculum. It was dilated easily to a #10 Hegar dilator. Then using a #10 curved suction curette, this was gently introduced through the cervix, carried through the endocervical canal and to the fundus. Suction was then turned on and the suction catheter was gently rotated. As we were drawing it back, the tissue was sent to the suction apparatus. Having done this, we once again advanced the suction catheter through the cervix to the fundus, and rotated the suction catheter while removing it. There did not seem to be much more tissue removed. With this in mind, we went ahead and got a medium-sized sharp curette and curetted the lining of the uterine cavity. There was no more tissue return. Just for completeness' sake, we went with the suction catheter 1 more time through the endocervical canal, up to the fundus, gently rotated it as we withdrew it. No more tissue was returned. We felt that this was adequate. This terminated the procedure. The tenaculum was taken off the anterior lip of the cervix. It was inspected. There was no evidence of active bleeding. The bi-valve speculum was inserted. The anesthesia was discontinued. The patient was placed back in the supine position. She was transferred to the recovery room in satisfactory condition. At the time of surgery, she had an estimated blood loss of 25 mL. Tolerated the procedure well. DICTATING PHYSICIAN: KAREN MARMOLEJO M.D. [id number] PHY#: [id number] ID: [id number] JOB#: [id number] ACCT: [id number] cc:KAREN MARMOLEJO M.D. >
[2017-11-08 21:18] LABS: HEMATOCRIT 24.5 % (36.0-47.0); MEAN CORPUSCULAR HGB CONC 30.7 g/dL (32.0-36.0); MEAN CORPUSCULAR VOLUME 68 fl (80-97); RED BLOOD COUNT 3.59 10^6/uL (3.72-5.28); RED CELL DISTRIBUTION WIDTH 25.3 % (11.5-14.0); WHITE BLOOD COUNT 10.9 10^3/uL (4.0-10.5)
[2017-11-08 21:32] LABS: HEMOGLOBIN 7.5 g/dL (12.0-15.5)
[2017-11-08 21:41] LABS: ABSOLUTE LYMPHOCYTES# (MANUAL) 0.1 10^3/uL (0.5-4.7); ABSOLUTE NEUTROPHILS# (MANUAL) 10.8 10^3/uL (1.7-8.2); BASOPHILS % (MANUAL) 0 % (0-2); EOSINOPHILS % (MANUAL) 0 % (0-6); LYMPHOCYTES % (MANUAL) 1 % (13-45); MONOCYTES % (MANUAL) 0 % (3-13); SEGMENTED NEUTROPHILS % (MAN) 99 % (42-78); TOTAL CELLS COUNTED 100
[2017-11-08 21:46] LABS: ANISOCYTOSIS 3+; HYPOCHROMASIA 2+; OVALOCYTES 1+; POIKILOCYTOSIS 2+; POLYCHROMASIA 1+; TARGET CELLS SLIGHT
[2017-11-08 21:47] LABS: SCHISTOCYTES 1+
[2017-11-08 21:48] LABS: PLATELET CLUMPS PRESENT; PLATELET COMMENT ADEQUATE
[2017-11-08 21:50] LABS: PLATELET COUNT 297 10^3/uL (150-450)
[2017-11-08] MEDS ORDERED: ACETAMINOPHEN WITH CODEINE #3 TABLET PO PRN ×2 (22:04)
[2017-11-09 07:02] LABS: HEMATOCRIT 29.4 % (36.0-47.0); HEMOGLOBIN 9.4 g/dL (12.0-15.5); MEAN CORPUSCULAR HGB CONC 31.9 g/dL (32.0-36.0); PLATELET COUNT 327 10^3/uL (150-450); RED BLOOD COUNT 4.06 10^6/uL (3.72-5.28); RED CELL DISTRIBUTION WIDTH 26.6 % (11.5-14.0)
[2017-11-09 07:40] LABS: MEAN CORPUSCULAR VOLUME 72 fl (80-97)
[2017-11-09 09:49] VITALS: BP 122/70
== END 2017-11-09 10:10 | disposition home or self-care (01) ==
LOC: 2N 14:05
PROVIDERS: ADMIT Obstetrics & Gynecology; ATTEND Obstetrics & Gynecology
PROC: 0UDB7ZX Extraction of Endometrium, Via Natural or Artificial Opening, Diagnostic (ICD-10-PCS; principal; 2017-11-08 17:30)
DX: N84.0 Polyp of corpus uteri (principal); N93.8 Other specified abnormal uterine and vaginal bleeding; N92.1 Excessive and frequent menstruation with irregular cycle; D64.9 Anemia, unspecified
CPT/HCPCS: 86900; 86901; 36415 ×2; 36430; 86850; 84443; 85025; 85027; 80053; 86920; 88305 ×2; 58120; G0378 ×2; G0379; P9016 ×2; J2250; J1100; J1410; J3010; J2550; J2405; J2704; 952; J3490

== ENCOUNTER 2017-12-09 05:39 | Day surgery (SDC) | payer OTHER ==
[2017-12-04 10:14] LABS: HEMOGLOBIN 10.6 g/dL (12.0-15.5); MEAN CORPUSCULAR HEMOGLOBIN 21.8 pg (27.0-33.4); MEAN CORPUSCULAR HGB CONC 31.3 g/dL (32.0-36.0); MEAN CORPUSCULAR VOLUME 70 fl (80-97); PLATELET COUNT 246 10^3/uL (150-450); RED BLOOD COUNT 4.88 10^6/uL (3.72-5.28); RED CELL DISTRIBUTION WIDTH 24.6 % (11.5-14.0); WHITE BLOOD COUNT 6.6 10^3/uL (4.0-10.5)
[2017-12-04 10:15] LABS: APPEARANCE,URINE SLIGHTLY-CLOUDY; BILIRUBIN,URINE NEGATIVE (NEGATIVE); COLOR,URINE YELLOW; GLUCOSE, URINE NEGATIVE (NEGATIVE); KETONES,URINE NEGATIVE (NEGATIVE); LEUKOCYTE ESTERASE,URINE NEGATIVE (NEGATIVE); NITRITE,URINE NEGATIVE (NEGATIVE); PROTEIN,URINE NEGATIVE (NEGATIVE); URINE SPECIFIC GRAVITY 1.019; UROBILINOGEN,URINE NEGATIVE mg/dL (<2.0)
[2017-12-04 10:33] LABS: ALANINE AMINOTRANSFERASE 28 U/L (9-52); ALBUMIN 4.2 g/dL (3.5-5.0); ALKALINE PHOSPHATASE 61 U/L (38-126); ANION GAP 15 (5-19); ASPARTATE AMINO TRANSFERASE 20 U/L (14-36); BILIRUBIN,DIRECT 0.2 mg/dL (0.0-0.4); BILIRUBIN,TOTAL 0.2 mg/dL (0.2-1.3); BLOOD UREA NITROGEN 14 mg/dL (7-20); CALCIUM 9.7 mg/dL (8.4-10.2); CARBON DIOXIDE 24 mmol/L (22-30); CHLORIDE 105 mmol/L (98-107); GLUCOSE 90 mg/dL (75-110); POTASSIUM 4.7 mmol/L (3.6-5.0); SODIUM 143.8 mmol/L (137-145); TOTAL PROTEIN 7.4 g/dL (6.3-8.2)
[~2017-12-09 05:39] MED LIST: CEFAZOLIN 1 GM/D5W RTU 1 GM/50 ML RTUPB IV PRN; LACTATED RINGERS 1000 ML IV PRN; LIDOCAINE 0.5% INJ-PF (5 MG/ML) 50 ML SDV SUBCUT PRN
[2017-12-09] MEDS ORDERED: LIDOCAINE 1% INJ-PF (10 MG/ML) 30 ML SDV ONE (06:39)
[2017-12-09] MEDS ORDERED: FENTANYL CITRATE INJ/PF 100 MCG/2 ML AMPUL ONE ×2 (06:58→06:59)
[2017-12-09] MEDS ORDERED: MIDAZOLAM 2 MG/2 ML INJ ONE (06:58)
[2017-12-09] MEDS ORDERED: PROPOFOL INJ 200 MG/20 ML VIAL IV ONE (06:59)
[2017-12-09] MEDS ORDERED: PROMETHAZINE HCL INJ 25 MG/1 ML VIAL IV PRN ×2 (07:48→09:00)
[2017-12-09] MEDS ORDERED: FENTANYL CITRATE INJ/PF 100 MCG/2 ML AMPUL IV PRN ×3 (07:48)
[2017-12-09] MEDS ORDERED: DIPHENHYDRAMINE HCL 50 MG/ML VIAL IV PRN (07:48)
[2017-12-09] MEDS: FENTANYL CITRATE INJ/PF 100 MCG/2 ML AMPUL ONE ×2 (08:35→08:43)
--- NOTE | 2017-12-09 08:54 | OPERATIVE REPORT E ---
Operative Report NAME: MINA WIN : 1985 AGE: 32Y DATE OF SURGERY: 12/09/2017 ROOM: PREOPERATIVE DIAGNOSIS: Dysfunctional uterine bleeding. POSTOPERATIVE DIAGNOSIS: Dysfunctional uterine bleeding plus endometrial polyp. OPERATION: D and C, hysteroscopy, NovaSure. SURGEON: KAREN MARMOLEJO M.D. ANESTHESIA: General. ESTIMATED BLOOD LOSS: Negligible. OPERATIVE PROCEDURE AND FINDINGS: At the time of surgery the vulva, vagina and cervix appeared to be normal. The uterus appeared to palpate normal. There was a small endometrial polyp that was visualized on hysteroscopy and was removed. The adnexa palpated negative. OPERATIVE PROCEDURE: The patient was brought into the OR, placed on the table in supine position and inducted under general anesthesia. She was then repositioned in the dorsal lithotomy position, prepped and draped in a sterile fashion. The bladder was drained of about 25 mL of clear yellow urine. Pelvic under anesthesia was then performed. A weighted speculum was then inserted in the vagina. The cervix was grasped on its anterior lip with a single-tooth tenaculum and an Allis. The uterus sounded to 8 cm. It was dilated with Hegar dilators to a #8. Having accomplished this we did check the cervical length and it came out to 4 cm, giving us a cavity length of 4 cm. The hysteroscope was empowered, running in normal saline. We visualized the contents of the uterus. We did remove an endometrial polyp and following this we did curette the uterus and got out the remaining tissue. Having accomplished this the NovaSure equipment was opened up, the system was purged. It was gently inserted through the cervix, reaching the fundus. It was gently opened up. It was pulled back, twisted right/left, north/south, and rotated 90 degrees in both directions. This was carried out, pulling it back in between 3 times to give us a cavity width of 4.5 cm. The NovaSure was empowered. It was turned on. We had a good burn time. The equipment was then closed. It was withdrawn. The tenaculum and Allis were taken off. The cervix was inspected and found to be alright. We had already looked in the uterine cavity and saw that we had had a good burn. Once again the saline was removed prior to removing the hysteroscope. This terminated the procedure. Excess saline was suctioned out and we then removed the rest of it with a sponge. There was no evidence of ongoing bleeding. The weighted speculum was removed. The patient was taken out of dorsal lithotomy position into a supine position and anesthesia was discontinued. She was transferred to the recovery room in satisfactory condition. Negligible blood loss. The tissue removed at the time of surgery was sent to pathology. DICTATING PHYSICIAN: KAREN MARMOLEJO M.D. [id number] PHY#: [id number] ID: [id number] JOB#: [id number] ACCT: [id number] cc:KAREN MARMOLEJO M.D. >
[2017-12-09] MEDS ORDERED: OXYCODONE-ACETAMINOPHEN 5-325 MG TABLET PO PRN ×2 (09:00)
[2017-12-09] MEDS ORDERED: ONDANSETRON HCL INJ/PF 4 MG/2 ML SDV ONE ×2 (09:50→11:00)
[2017-12-09] MEDS ORDERED: PHENYLEPHRINE HCL INJ/PF 10 MG/1 ML SDV ONE (11:00)
[2017-12-09] MEDS ORDERED: LIDOCAINE 2% INJ-PF (20 MG/ML) 2 ML AMPUL ONE (11:00)
[2017-12-09] MEDS ORDERED: DEXAMETHASONE SOD PHOSPHATE INJ 4 MG/1 ML VIAL ONE (11:00)
[2017-12-09] MEDS ORDERED: GLYCOPYRROLATE INJ 0.4 MG/2 ML VIAL ONE (11:00)
[2017-12-09] MEDS ORDERED: SUCCINYLCHOLINE CHLORIDE INJ 200 MG/10 ML VIAL ONE (11:00)
[2017-12-09 11:15] VITALS: BP 107/71
== END 2017-12-09 11:19 | disposition home or self-care (01) ==
LOC: OROUT 05:39
PROVIDERS: ATTEND Obstetrics & Gynecology
DX: N93.8 Other specified abnormal uterine and vaginal bleeding (principal); N84.0 Polyp of corpus uteri; D64.9 Anemia, unspecified; Z90.5 Acquired absence of kidney
CPT/HCPCS: 36415; 85027; 81025; 80053; 81001; 88305 ×2; 58563; J2250; J0690; J1100; J3010; J2370; J0330; J2405; J2704; J3490; 952

== ENCOUNTER 2018-03-19 19:20 | Emergency (ER) | payer OTHER ==
[2018-03-19] MEDS ORDERED: HYDROCODONE/ACETAMINOPHEN 5-325 MG TABLET PO ONE (20:07)
[2018-03-19] MEDS ORDERED: DICYCLOMINE HCL INJ 20 MG/2 ML AMPULE IM ONE (20:07)
--- NOTE | 2018-03-19 20:10 | ER Document Report ---
ED Medical Screen (RME) - General Chief Complaint: Abdominal Pain Stated Complaint: LOWER ABDOMINAL PAIN Time Seen by Provider: 03/19/18 20:06 Notes: 32 years old female presents today with left lower quadrant abdominal pain as well as pelvic pain for the last few days. Associated with difficulty in passing gas. Nausea no vomiting. She has been taking Ultram and Tylenol without improvement. Denies any fever chills cough or other constitutional symptoms. Denies any vagina discharges or bleeding. She had a uterine ablation done/as well as donated one kidney for her father. TRAVEL OUTSIDE OF THE [place] IN LAST 30 DAYS: No - Related Data Allergies/Adverse Reactions: No Known Allergies Allergy (Verified 12/04/17 08:24) Past Medical History - Social History Chew tobacco use (# tins/day): No Frequency of alcohol use: None Drug Abuse: None - Past Medical History Cardiac Medical History: Denies: Hx Coronary Artery Disease, Hx DVT, Hx Heart Attack, Hx Hypertension , Hx Pulmonary Embolism Pulmonary Medical History: Denies: Hx Asthma, Hx Bronchitis, Hx COPD, Hx Pneumonia Neurological Medical History: Denies: Hx Cerebrovascular Accident, Hx Seizures Renal/ Medical History: Denies: Hx Peritoneal Dialysis Musculoskeltal Medical History: Denies Hx Arthritis Past Surgical History: Reports: Hx Section, Hx Kidney (Renal Surgery) - donated left kidney, Hx Urinary Tract Surgery - Elective nephrectomy - Immunizations Hx Diphtheria, Pertussis, Tetanus Vaccination: Yes History of Influenza Vaccine for 05/2017 - 10/2017 Season: Yes Influenza Administration Date for 05/2017 - 10/2017 Season: 05/12/18 Physical Exam - Vital signs Vitals: Temp Pulse Resp BP Pulse Ox 98.3 F 110 H 17 139/86 H 100 03/19/18 19:25 03/19/18 19:25 03/19/18 19:25 03/19/18 19:25 03/19/18 19:25 Course - Vital Signs Vital signs: Temp Pulse Resp BP Pulse Ox 98.3 F 110 H 17 139/86 H 100 03/19/18 19:25 03/19/18 19:25 03/19/18 19:25 03/19/18 19:25 03/19/18 19:25 Doctor's Discharge - Discharge Referrals: KAREN MARMOLEJO MD [Primary Care Provider] - Follow up as needed
[2018-03-19 20:29] LABS: ABSOLUTE BASOPHILS # (AUTO) 0.1 10^3/uL (0.0-0.2); ABSOLUTE EOSINOPHILS # (AUTO) 0.1 10^3/uL (0.0-0.6); ABSOLUTE LYMPHOCYTES (AUTO) 1.7 10^3/uL (0.5-4.7); ABSOLUTE MONOCYTES (AUTO) 0.7 10^3/uL (0.1-1.4); ABSOLUTE NEUT (AUTO) 11.3 10^3/uL (1.7-8.2); BASOPHILS % (AUTO) 0.6 % (0-2); EOSINOPHILS % (AUTO) 0.9 % (0-6); HEMATOCRIT 36.2 % (36.0-47.0); HEMOGLOBIN 11.3 g/dL (12.0-15.5); LYMPHOCYTES % (AUTO) 11.9 % (13-45); MEAN CORPUSCULAR HEMOGLOBIN 20.9 pg (27.0-33.4); MEAN CORPUSCULAR HGB CONC 31.3 g/dL (32.0-36.0); MEAN CORPUSCULAR VOLUME 67 fl (80-97); MONOCYTES % (AUTO) 5.3 % (3-13); PLATELET COUNT 208 10^3/uL (150-450); RED BLOOD COUNT 5.43 10^6/uL (3.72-5.28); RED CELL DISTRIBUTION WIDTH 20.7 % (11.5-14.0); SEGMENTED NEUTROPHILS % (AUTO) 81.3 % (42-78); TOTAL CELLS COUNTED % (AUTO) 100 %; WHITE BLOOD COUNT 13.9 10^3/uL (4.0-10.5)
[2018-03-19 20:45] LABS: ALANINE AMINOTRANSFERASE 34 U/L (9-52); ALBUMIN 4.3 g/dL (3.5-5.0); ALKALINE PHOSPHATASE 59 U/L (38-126); ANION GAP 14 (5-19); ASPARTATE AMINO TRANSFERASE 29 U/L (14-36); BILIRUBIN,DIRECT 0.2 mg/dL (0.0-0.4); BILIRUBIN,TOTAL 0.5 mg/dL (0.2-1.3); BLOOD UREA NITROGEN 14 mg/dL (7-20); CALCIUM 9.3 mg/dL (8.4-10.2); CARBON DIOXIDE 25 mmol/L (22-30); CHLORIDE 103 mmol/L (98-107); GLUCOSE 114 mg/dL (75-110); SODIUM 142.1 mmol/L (137-145); TOTAL PROTEIN 7.7 g/dL (6.3-8.2)
--- NOTE | 2018-03-19 21:12 | RADIOLOGY REPORT (SQ) ---
EXAM DESCRIPTION: U/S NON-OB PELVIS W/O DOP COMPLETED DATE/TIME: 03/19/2018 9:03 pm REASON FOR STUDY: Abdominal/pelvic pain LMP 02/14/2018 COMPARISON: None. TECHNIQUE: Dynamic and static grayscale images acquired of the pelvis via transabdominal approach an d recorded on PACS. Additional selected color Doppler and spectral images recorded. LIMITATIONS: None. FINDINGS: UTERUS: Contour normal. No mass. ENDOMETRIAL STRIPE: No focal or generalized thickening. No masses. CERVIX: 3.2 cm. No nabothian cysts. RIGHT OVARY AND DOPPLER: Right ovary not seen. LEFT OVARY AND DOPPLER: Normal size. No worrisome masses. FREE FLUID: There is some free fluid in the posterior cul-de-sac. OTHER: No other significant finding. MEASUREMENTS: UTERUS: 11.3 x 6.5 x 7.7 cm. ENDOMETRIAL STRIPE: 1 cm. RIGHT OVARY: Not seen. LEFT OVARY: 3.8 x 3.3 x 2.6 cm. IMPRESSION: NORMAL PELVIC ULTRASOUND BY TRANSABDOMINAL TECHNIQUE. TECHNICAL DOCUMENTATION: JOB ID: [id number] [employer]- All Rights Reserved Rev-12/27 Reading location - IP/workstation name: [email or web address]
[2018-03-19] MEDS ORDERED: MORPHINE SULFATE 10 MG/ML INJ IV ONE (21:47)
[2018-03-19] MEDS ORDERED: NORMAL SALINE 1000 ML 500 ML IV ONE (21:47)
[2018-03-19] MEDS ORDERED: ONDANSETRON HCL INJ/PF 4 MG/2 ML SDV IV ONE (22:51)
[2018-03-19] MEDS ORDERED: FENTANYL CITRATE INJ/PF 100 MCG/2 ML AMPUL IV ONE (22:52)
[2018-03-20 01:17] LABS: APPEARANCE,URINE CLEAR; BILIRUBIN,URINE NEGATIVE (NEGATIVE); COLOR,URINE YELLOW; GLUCOSE, URINE NEGATIVE (NEGATIVE); KETONES,URINE NEGATIVE (NEGATIVE); LEUKOCYTE ESTERASE,URINE NEGATIVE (NEGATIVE); NITRITE,URINE NEGATIVE (NEGATIVE); PROTEIN,URINE NEGATIVE (NEGATIVE); URINE SPECIFIC GRAVITY 1.015; UROBILINOGEN,URINE NEGATIVE mg/dL (<2.0)
--- NOTE | 2018-03-20 01:30 | RADIOLOGY REPORT (SQ) ---
EXAM DESCRIPTION: CT ABDOMEN PELVIS WITHOUT IV CONTRAST COMPLETED DATE/TME: 03/20/2018 00:00 CLINICAL HISTORY: 32 years Female, RLQ pain Comparison: Pelvic ultrasound, one day prior. Technique: No IV contrast. Oral contrast only.[facility]: Dose Right [facility]: CareDose [facility]: Dose Right [facility]: Teradose 4D [facility]: Syntaxin LIMITATIONS: None Findings: Retroperitoneal clips. Left nephrectomy clips. No appendicitis. Likely normal appendix visualized. No ascites. Prominence of likely bilateral ovaries measuring up to 6 cm each. Widening linea alba with mild anterior protrusion. Unenhanced lower thorax, abdominopelvic structures, and musculoskeleton appear otherwise grossly unremarkable. Impression: No acute findings. Left nephrectomy.
[2018-03-20 02:08] VITALS: BP 119/75
--- NOTE | 2018-03-20 02:08 | ER Document Report ---
ED General - General Chief Complaint: Abdominal Pain Stated Complaint: LOWER ABDOMINAL PAIN Time Seen by Provider: 03/19/18 20:06 Mode of Arrival: Ambulatory Information source: Patient Notes: Patient is a 32-year-old female who presents with chief complaint of left lower quadrant pain and pelvic pain 2-3 days. Patient reports difficulty passing gas. Patient reports normal bowel movements, denies any vomiting or diarrhea diarrhea. Patient reports nausea. Patient denies any fevers chills or urinary symptoms. Patient denies any abnormal vaginal discharge. TRAVEL OUTSIDE OF THE [place] IN LAST 30 DAYS: No - Related Data Allergies/Adverse Reactions: No Known Allergies Allergy (Verified 12/04/17 08:24) Past Medical History - General Information source: Patient - Social History Smoking Status: Never Smoker Chew tobacco use (# tins/day): No Frequency of alcohol use: None Drug Abuse: None Family History: Reviewed & Not Pertinent Patient has suicidal ideation: No Patient has homicidal ideation: No - Past Medical History Cardiac Medical History: Denies: Hx Coronary Artery Disease, Hx DVT, Hx Heart Attack, Hx Hypertension , Hx Pulmonary Embolism Pulmonary Medical History: Denies: Hx Asthma, Hx Bronchitis, Hx COPD, Hx Pneumonia Neurological Medical History: Denies: Hx Cerebrovascular Accident, Hx Seizures Renal/ Medical History: Denies: Hx Peritoneal Dialysis Musculoskeletal Medical History: Denies Hx Arthritis Past Surgical History: Reports: Hx Section, Hx Kidney (Renal Surgery) - donated left kidney, Hx Urinary Tract Surgery - Elective nephrectomy - Immunizations Hx Diphtheria, Pertussis, Tetanus Vaccination: Yes Review of Systems - Review of Systems Constitutional: No symptoms reported EENT: No symptoms reported Cardiovascular: No symptoms reported Respiratory: No symptoms reported Gastrointestinal: See HPI Genitourinary: No symptoms reported Female Genitourinary: No symptoms reported Musculoskeletal: No symptoms reported Skin: No symptoms reported Hematologic/Lymphatic: No symptoms reported Neurological/Psychological: No symptoms reported Physical Exam - Vital signs Vitals: Temp Pulse Resp BP Pulse Ox 98.3 F 110 H 17 139/86 H 100 03/19/18 19:25 03/19/18 19:25 03/19/18 19:25 03/19/18 19:25 03/19/18 19:25 - Notes Notes: PHYSICAL EXAMINATION: GENERAL: Well-appearing, well-nourished and in no acute distress. HEAD: Atraumatic, normocephalic. EYES: Pupils equal round and reactive to light, extraocular movements intact, conjunctiva are normal. ENT: Nares patent, oropharynx clear without exudates. Moist mucous membranes. NECK: Normal range of motion, supple without lymphadenopathy LUNGS: Breath sounds clear to auscultation bilaterally and equal. No wheezes rales or rhonchi. HEART: Regular rate and rhythm without murmurs ABDOMEN: Soft, nondistended abdomen. Tenderness to palpation over left lower quadrant. No guarding, no rebound. No masses appreciated. Female : Declined speculum exam. Musculoskeletal: Normal range of motion, no pitting or edema. No cyanosis. NEUROLOGICAL: Cranial nerves grossly intact. Normal speech, normal gait. Normal sensory, motor exams PSYCH: Normal mood, normal affect. SKIN: Warm, Dry, normal turgor, no rashes or lesions noted. Course - Re-evaluation Re-evalutation: Patient is an initial workup was initiated by provider in triage. CBC reveals a white count of 13.9, neutrophils are 81.3. Chemistry is unremarkable. Urinalysis with large blood. Patient does report that she had her period several days ago. Transabdominal ultrasound is negative for any acute findings. Per the recommendation of Dr. Amaro patient will be sent for CT of the abdomen pelvis with IV and oral contrast. Patient does not appear to be in any acute distress, vital signs are within normal limits. CT abdomen pelvis with no acute findings, appendix appears normal. Patient refused the IV contrast at the last minute however she did report completing all of the p.o. contrast. Patient's pain is controlled, patient has not vomited since arrival to the department. Patient will be discharged home with close follow-up by her primary care. - Vital Signs Vital signs: Temp Pulse Resp BP Pulse Ox 98.1 F 94 17 119/75 100 03/20/18 02:07 03/20/18 02:07 03/19/18 19:25 03/20/18 02:07 03/20/18 02:07 - Laboratory Result Diagrams: 03/19/18 20:15 03/19/18 20:15 Laboratory results interpreted by me: 03/19/18 03/19/18 03/20/18 20:15 20:15 00:15 WBC 13.9 H RBC 5.43 H Hgb 11.3 L MCV 67 L MCH 20.9 L MCHC 31.3 L RDW 20.7 H Seg Neutrophils % 81.3 H Lymphocytes % 11.9 L Absolute Neutrophils 11.3 H Est GFR (Non-Af Amer) 52 L Glucose 114 H Urine Blood LARGE H Discharge - Discharge Clinical Impression: Abdominal pain Qualifiers: Abdominal location: right lower quadrant Qualified Code(s): R10.31 - Right lower quadrant pain Condition: Stable Disposition: HOME, SELF-CARE Additional Instructions: Abdominal Pain There are many causes of abdominal pain. Pain can mean a serious problem requiring surgery (such as appendicitis). It can also be an innocent problem that goes away on its own (such as a viral infection). Often, time must pass to determine the cause of pain. The physician does not feel that hospitalization is necessary, at present. Things may change within the next 24 hours. Call the doctor or come back for re- examination if any problems occur, such as: (1) Pain that becomes more severe, steady, or becomes concentrated in one specific area. Also, pain that is more severe with movement or coughing. (2) Vomiting that persists or becomes more frequent. (3) Blood in the vomitus, urine, or bowel movements. Blood in the stool may have a tarry or black appearance. (4) Shaking chills or fever greater than 100 degrees F. (5) The abdomen becomes more distended or swollen. (6) Bowel movements cease. (7) Failure to improve as expected. Your ultrasound of the pelvis today was normal. The CAT scan of your abdomen and pelvis was unremarkable however you declined to take the IV contrast which potentially inhibits the images of your organs. Please return to the emergency department if you develop worsening pain, you develop a fever or you began having vomiting. Please follow-up with your [facility] in the next 1- 2 days for a follow-up, sooner if worsening. We are happy to reevaluate you at any time. Prescriptions: Dicyclomine HCl [Bentyl 20 mg Tablet] 20 mg PO QID #40 tablet Ondansetron [Zofran Odt 4 mg Tablet] 1 - 2 tab PO Q4H PRN #15 tab.rapdis PRN Reason: For Nausea/Vomiting Oxycodone HCl/Acetaminophen [Percocet 5-325 mg Tablet] 1 - 2 tab PO Q4H PRN #12 tablet PRN Reason: Referrals: KAREN MARMOLEJO MD [Primary Care Provider] - Follow up as needed
== END 2018-03-20 02:35 | disposition home or self-care (01) ==
LOC: ER 19:20
DX: R10.31 Right lower quadrant pain (principal); R10.814 Left lower quadrant abdominal tenderness; R11.0 Nausea; Z90.5 Acquired absence of kidney
CPT/HCPCS: 99284; 96372; 96374; 96375; 36415; 85025; 81025; 80053; 81001; 76856; 74176; J0500; J3010; J2270; J2405; J7030

== ENCOUNTER → 2018-09-01 | Outpatient (CLI) | payer OTHER ==
[2018-09-01 12:29] LABS: ALANINE AMINOTRANSFERASE 24 U/L (9-52); ALBUMIN 4.9 g/dL (3.5-5.0); ALKALINE PHOSPHATASE 64 U/L (38-126); ANION GAP 9 (5-19); ASPARTATE AMINO TRANSFERASE 26 U/L (14-36); BILIRUBIN,DIRECT 0.3 mg/dL (0.0-0.4); BILIRUBIN,TOTAL 0.8 mg/dL (0.2-1.3); BLOOD UREA NITROGEN 12 mg/dL (7-20); CARBON DIOXIDE 28 mmol/L (22-30); CHLORIDE 103 mmol/L (98-107); GLUCOSE 88 mg/dL (75-110); POTASSIUM 4.6 mmol/L (3.6-5.0); SODIUM 139.7 mmol/L (137-145); TOTAL PROTEIN 8.1 g/dL (6.3-8.2)
== END ==
LOC: OD 10:56
PROVIDERS: ATTEND Obstetrics & Gynecology
DX: Z11.4 Encounter for screening for human immunodeficiency virus [HIV] (principal); I10 Essential (primary) hypertension
CPT/HCPCS: 36415; 80053; 86701